=== PATIENT | female | born 1995 | race Caucasian/White ===

== ENCOUNTER 2018-06-03 09:40 | Emergency (ER) | payer BC ==
[2018-06-03] MEDS: IBUPROFEN 600 MG TAB PO (10:06)
== END 2018-06-03 11:40 | disposition home or self-care (01) ==
LOC: FTE 09:40
DX: S89.91XA Unspecified injury of right lower leg, initial encounter (principal); S79.911A Unspecified injury of right hip, initial encounter; V49.00XA Driver injured in collision with unspecified motor vehicles in nontraffic accident, initial encounter
CPT/HCPCS: 73510; 73562; 81025; 99284-25